=== PATIENT | male | born 1960 | race Caucasian/White ===

== ENCOUNTER 2023-03-26 06:57 | Day surgery (SDC) | payer OTHER, SELFPAY ==
[2023-03-26] VITALS (11 sets, daily range): BP systolic 131–153; BP diastolic 80–95; PULSE 80–93; RESP 16–23; TEMP 36.1–36.3; O2SAT 93–97; BMI 38.3
[2023-03-26] MEDS: scopolamine 1.5 Patch 1 PATCH TRANSDERMA (07:18)
[2023-03-26] MEDS: sodium chloride 0.9% 1,000 ML 30 ML IV ×2 (07:34→08:54)
[2023-03-26] MEDS: acetaminophen 1,000 MG/100 ML PIGGYBACK 400 MG IV (07:36)
--- NOTE | 2023-03-26 07:47 | ANES.PREANE2 ---
Pre-Anesthetic Assessment Height/Weight: Height 1.93 m Weight 142.882 kg Temp Pulse Resp BP Pulse Ox O2 Del Method 97.4 F L 85 16 145/87 96 Room Air 03/26/23 07:21 03/26/23 07:21 03/26/23 07:21 03/26/23 07:21 03/26/23 07:21 03/26/23 07:30 Operation Date: 03/26/23 08:40 Proposed Procedures p Bicep Tenotomy(Right) - Al Evans, DO s Subacromial Decompression(Right) - Al Evans, DO s AC Joint Resection Acromioclavicular Joint Resection(Right) - Al Kings, DO Familial anesthetic complications: None Was Beta Joanna taken within 24 hours: N/A Was Clonidine taken within 24 hours: N/A Last intake: Intake Last Liquid Date 03/25/23 Last Liquid Time 20:30 Last Solid Date 03/25/23 Last Solid Time 20:00 Social No alcohol and No tobacco Exam alert, oriented x 3, clear to auscultation bilaterally and regular rate & rhythm Airway Mallampati: Class III Dentition: full Pulmonary Asthma (NSAIDs evoke asthma symptoms) and Sleep Apnea Hx pneumonia at 18 months, states lower lungs ended up with a bit of damage CV/HEM Hypertension Hx chest pains 13 years ago, clear cath per patient.Prescribed HTG and hasn't required them in 2 to 3 years. Denies continued chest pains, states he's able to achieve > 4 METs w/out cardiac symptoms. Dinitrate is taken for HTN per patient GI Gastroesophageal Reflux Disease Metabolic Diabetes Mellitus and Morbid Obesity Anesthetic Plan ASA status: 3 Anesthesia: General and Regional (specify below) Risk of > 500 ml blood loss (7ml/kg in children): No Medications/Allergies Home Medications Medication Instructions Recorded Confirmed Last Taken Type amlodipine 10 mg tablet 10 mg PO DAILY 03/08/23 03/23/23 03/25/23 History buspirone 10 mg tablet 10 mg PO DAILY 03/08/23 03/23/23 03/25/23 History cyclobenzaprine 10 mg tablet 10 mg PO TID 03/08/23 03/23/23 03/25/23 History dulaglutide 0.75 mg/0.5 mL 0.75 mg SUBCUT DIRECTED 03/08/23 03/23/23 03/19/23 History subcutaneous pen injector (Trulicity) empagliflozin 25 mg tablet 25 mg PO DAILY 03/08/23 03/23/23 03/25/23 History (Jardiance) esomeprazole magnesium 40 mg 40 mg PO DAILY 03/08/23 03/23/23 03/25/23 History capsule,delayed release (Nexium) gabapentin 100 mg capsule 100 mg PO TID 03/08/23 03/23/23 03/25/23 History hydroxyzine HCl 25 mg tablet 25 mg PO DAILY 03/08/23 03/23/23 03/25/23 History isosorbide dinitrate 30 mg tablet 30 mg PO BID 03/08/23 03/23/23 03/25/23 History umeclidinium 62.5 mcg-vilanterol 1 inh inhalation DAILY 03/08/23 03/23/23 03/25/23 History 25 mcg/actuation powdr for inhalation (Anoro Ellipta) mometasone-formoterol HFA 200 2 puff inhalation DAILY 03/23/23 03/23/23 03/25/23 History mcg-5 mcg/actuation aerosol inhaler (Dulera) acetaminophen 650 mg 650 mg PO Q12H PRN Pain 03/26/23 03/26/23 03/25/23 History tablet,extended release (Tylenol Arthritis Pain) hydrocodone 5 mg-acetaminophen 325 1 tab PO Q6H PRN pain 5 days #20 03/26/23 Unknown Rx mg tablet tabs ondansetron 4 mg disintegrating 4 mg PO Q8H PRN nausea and 03/26/23 Unknown Rx tablet vomiting 3 days #9 tabs Allergies Allergy/AdvReac Type Severity Reaction Status Date / Time NSAIDS (Non-Steroidal Allergy Intermediate ADR-Cough Verified 03/23/23 10:41 Anti-Inflamma Sulfa (Sulfonamide Allergy Intermediate ALGY-Hives Verified 03/23/23 10:41 Antibiotics) Current Medications Generic Name Dose Route Start Last Admin Trade Name Freq PRN Reason Stop Dose Admin Sodium Chloride 1,000 mls @ 30 mls/hr 03/26/23 07:15 03/26/23 07:34 Sodium Chloride 0.9% IV 03/27/23 07:14 30 mls/hr .Q24H ALLA Administration Data Anesthesia 03/26/23 07:43 03/26/23 07:37 Cardiac Studies: No Data to Display
[2023-03-26 07:50] LABS: Basophils % 0.5 %; Eosinophils # 0.1 10^3/uL (0.0-0.8); Eosinophils % 2.1 %; Hematocrit 49.6 % (37-53); Lymphocytes # 1.5 10^3/uL (0.8-4.8); Lymphocytes % 23.3 %; Mean Corpuscular HGB Conc 32.7 g/dL (30-55); Mean Corpuscular Hemoglobin 28.9 pg (27-33); Mean Corpuscular Volume 88.6 fl (82-101); Mean Platelet Volume 9.5 fL (7.4-10.4); Monocytes # 0.6 10^3/uL (0.2-0.9); Monocytes % 8.7 %; Neutrophils # 4.12 10^3/uL (1.8-7.7); Neutrophils % 65.1 %; Nucleated Red Blood Cells % 0 %; Platelet Count 249 10^3/cmm (157-399); Red Cell Distribution Width 13.5 % (12.1-15.1); White Blood Count 6.32 10^3/uL (3.29-11.43)
[2023-03-26 08:06] LABS: Anion Gap 16.1 (5-19); Blood Urea Nitrogen 19 mg/dL (8-23); Calcium 9.5 mg/dL (8.5-10.5); Carbon Dioxide 26 mmol/L (22-29); Chloride 102 mmol/L (98-107); Glomerular Filtration Rate 68.3 mL/min (90-130); Glucose 145 mg/dL (65-115); Osmolality Calculated 295 mOsm/kg (285-295); Potassium 4.1 mmol/L (3.5-5.1); Sodium 140 mmol/L (136-145)
--- NOTE | 2023-03-26 08:27 | ANES.PROC ---
Anesthesia Procedures Procedure/Date: 03/26/23 Nerve Block ^: Nerve Block 1: Main Anesthesia: general anesthesia Time Out Performed: Yes Consent: requested by attending/covering physician, from patient, from other, risks and benefits reviewed and patient agrees to proceed Nerve block location: interscalene (R) Anesthesia monitors applied: pulse oximetry, EKG, BP cuff and oxygen Nerve block position: semi sitting Anesthetic Used: ropivicaine 0.5% (30 ml) and with decadron (4 mg) Ultrasound used to: recognize landmarks, visualize and ID brachial plexus and visualize and ID interscalene groove Nerve Stimulator Used?: No Interscalene/Femoral BLK: 2 stimuplex 22 g needle used for position and inplane approach, visualize local anesthetic spread and no vascular puncture identified Injection: neg aspiration of heme Patient Tolerated Procedure: well and no complications Complications: none
--- NOTE | 2023-03-26 08:51 | W.PM.OPSUD ---
Surgery/Procedure H&P Update DATE OF PROCEDURE: March 26, 2023 DATE H&P PERFORMED: 03/08/23 H&P UPDATE INFORMATION: I have reviewed H&P completed within last 30 days, I have examined patient prior to procedure and No changes to prior documentation PREOP DIAGNOSIS: Right shoulder biceps tendinitis, subacromial impingement, AC joint arthrit PRIMARY INDICATION FOR PROCEDURE: Right shoulder biceps tendinitis, subacromial impingement, AC joint arthritis PLANNED PROCEDURE: Operation Date: 03/26/23 08:40 Proposed Procedures p Bicep Tenotomy(Right) - DO sunita Hernandez Subacromial Decompression(Right) - DO sunita Hernandez AC Joint Resection Acromioclavicular Joint Resection(Right) - Al Krueger DO
[2023-03-26] MEDS: ceFAZolin 2,000 MG in sodium chloride 0.9% (plus) 50 ML 100 MG IV (09:01)
--- NOTE | 2023-03-26 11:46 | PM.OP ---
Operative Report Date of procedure: March 26, 2023 Surgeon: Al Krueger DO Recreational Vehicle Repairer: Joaquín Krueger PA-C, PA was necessary for assistance in this case with assistance on instrumentation as well as positioning and assist in wound closure to execute the procedure Procedure: Preoperative diagnosis Right shoulder biceps tendinitis, subacromial impingement, AC joint arthritis Post-op diagnosis:? Right?shoulder?labral tear Right?shoulder?biceps tendon tear Right?shoulder?rotator cuff tear partial Right?shoulder?AC joint arthritis Right?shoulder?subacromial bursitis/impingement Procedure done: Left?shoulder?diagnostic and surgical arthroscopy with Rotator cuff debridement Left?shoulder?diagnostic and surgical arthroscopy biceps tenotomy Left?shoulder?diagnostic and surgical arthroscopy labral debridement Left?shoulder?diagnostic and surgical arthroscopy acromioclavicular joint resection Left?shoulder?diagnostic and surgical arthroscopy subacromial decompression (acromioplasty and bursectomy) Surgeon: Al Krueger DO Estimated blood loss: [50 mL]mL IV fluids: See anesthesia record Implants: None Complications: None Condition: stable Disposition: same day Brief History: Patient been seen and worked up in the outpatient setting for right?shoulder?pain.? Pt had an MRI which AC joint arthritis, biceps tendon tearing partial rotator cuff tear subacromial impingement..? Patient's failed conservative treatment.? We talked about treatment options far as nonoperative and operative intervention..? We talked about risk benefits complication alternatives surgical nonsurgical treatment options.? Understanding risk of surgery pt agrees to proceed with surgical intervention.? All questions have been answered at this time.? Patient elects proceed with surgery and consent obtained in office. Procedure: Patient seen evaluated in the preoperative holding area.? Consent reviewed and signed with patient.? Once again reviewed patient's MRI results as well as? planned surgical intervention.? Correct extremity marked.? Patient seen evaluated by anesthesia department received regional anesthesia.? Once ready for surgery was taken back to the operative suite.? Patient then subsequently underwent anesthesia per the anesthesia department was transported onto the OR table.? Patient was then placed into a lateral decubitus position with a beanbag and was appropriately secured to the bed.? All bony prominences well-padded.? Patient then had the right upper extremity was then prepped and draped in standard orthopedic fashion.? Patient received appropriate preoperative antibiotics.? Final timeout performed. The right upper extremity was then held in hanging from traction utilizing sterile technique.? Next started with standard diagnostic and surgical arthroscopy with posterior portal position introduced arthroscope into the glenohumeral joint.? Visualized the glenohumeral joint I then introduced a spinal needle within the rotator cuff interval to confirm appropriate anterior portal placement.? Once this was confirmed I then made my small incision and then introduced my arthroscopic shaver into the glenohumeral joint.? After thorough debridement was clearly evident patient had a significant erythema as well as positive liftoff sign of the biceps anchor and biceps tendon tear as it was pulled within the joint.? Decision at this time was made to perform a biceps tenotomy.? Introduced a thermal wand and a biceps tenotomy was performed to completion With appropriate release.? Next I evaluated the subscapularis tendon which was intact and no evidence of tear. ?Next there was significant labral tearing at biceps anchor and circumferential.? ? I then subsequently utilized a a arthroscopic shaver and thermal wand to perform a labral debridement.? This point time I then visualized the glenohumeral joint.? The glenohumeral joint was found to have grade 2-3? chondromalacia throughout. There is a small focal full-thickness defect in the cartilage of the humeral head posteriorly. Infrapatellar pouch was free of loose bodies from viewing the posterior portal.? Next a visualized the rotator cuff superiorly and there was found to be a small undersurface tearing of the supraspinatus tendon.? I utilized a spinal needle to yuan this location.? ?This completed my work within the glenohumeral joint all fluid was suctioned free of the joint.? ?Next I reintroduced the arthroscope posteriorly.? And went to the subacromial space.? I established my lateral working portal? Thermal wand was then introduced laterally and then I subsequently performed extensive bursectomy of the subacromial space.? Patient had a large anterior bone spur.? At this point time I proceeded with my AC joint resection thermal wand was used and track to the anterior edge of the acromion and then tracked all the way to the AC joint.? Once identified the AC joint this was very arthritic in nature.? Thermal wand was placed anteriorly to establish appropriate plane for AC joint resection.? Once appropriate margins and anterior inferior and anterior capsule was released I then introduced arthroscopic shaver and a bur and performed AC joint resection of both the acromion to cope plane at the AC joint and a distal clavicle resection was then performed totaling 1 cm in size and was confirmed.? This completed my AC joint resection and I then introduced the arthroscopic shaver laterally while continuing to view posteriorly.? I then performed an acromioplasty to complete my subacromial decompression prior to fixing the rotator cuff tear.? Next the arthroscopic shaver was then used and I completed the bursectomy over top of the rotator cuff and evaluated and patient only had a partial rotator cuff tear with no evidence of full-thickness tear and no indication for repair of the rotator cuff was appropriately debrided to stable bleeding healthy tissue. ?Next I then introduced the arthroscopic shaver posteriorly to complete my subacromial decompression appropriate complaining all the way up to the lateral edge of the acromion.? This completed the surgery.? All fluid was suctioned from the?shoulder.? All instruments were removed.? The lateral incision was then closed with nylon stitches.? As well as the portal sites closed with portal nylon stitches.? Xeroform 4 x 4's ABD and tape was then applied to the ?shoulder?and was placed into a?shoulder?abduction pillow sling for rotator cuff repair.? Patient was then awakened from anesthesia and then taken back to PACU in stable condition.? Patient tolerated procedure without any issues. Disposition: Patient taken back in stable condition recovering well.? Dressings on in place clean dry and intact.? Will be nonweightbearing to the right upper extremity.? Follow rotator cuff repair protocol.? Patient to follow-up with me in the office in 2 weeks.? Patient will receive appropriate discharge instruction as well as pain medication postoperatively.? All questions answered.? We will contact the office for any questions or concerns.
--- NOTE | 2023-03-26 11:47 | W.PM.BPON ---
Date of Procedure: [March 26, 2023] Surgeon: [Dr. Evnas SOLO] Household Refrigeration Mechanic(s): [Joaquín Krueger physician associate] Procedure(s) performed: [Right shoulder diagnostic arthroscopy with AC joint resection, subacromial decompression, biceps tenotomy, rotator cuff debridement] Findings of the procedure(s): [Right shoulder biceps tendinitis, subacromial impingement, AC joint arthritis.] Estimated blood loss: [5ml] Specimen(s) removed: [N/A] Post-operative diagnosis: [Right shoulder biceps tendinitis, subacromial impingement, AC joint arthritis]
--- NOTE | 2023-03-26 11:51 | PM.PACU ---
PACU note Narrative: Patient is a 62-year-old male that underwent a right shoulder diagnostic arthroscopy. Patient transferred to PACU in stable condition. Pain is well controlled. shoulder Dressing on , dry and in place. Patient's operative arm is in a shoulder sling. Patient is awake and alert and able to respond to my questions accordingly. Patient's fingers are warm with good perfusion. Normal cap refill under 2 seconds. Unable to assess further range of motion in arm due to sling. Unable to assess sensation and motor due to block. Exam: awake Disposition: discharged
[2023-03-26 12:13] LABS: Glucose Point of Care 139 mg/dL (70-110)
[2023-03-26] MEDS: HYDROcodone-acetaminophen 5-325 mg Tablet 1 TAB PO (12:18)
--- NOTE | 2023-03-26 12:45 | ANE.PACU2 ---
Inpatient post-anesthesia follow up: Airway intact: Yes Vital signs: Temperature 97 F Pulse Rate 83 Respiratory Rate 18 Blood Pressure 131/80 Pulse Oximetry 93 Oxygen Delivery Me thod Room Air Oxygen Flow Rate Fraction of Inspir ed Oxygen Hydration adequate: Yes Nausea and vomiting: No Pain level: 1 Mental status: Baseline
== END 2023-03-26 12:49 | disposition home or self-care (01) ==
PROVIDERS: Anesthesiology; PCP Family Medicine; Visit Provider Student in an Organized Health Care Education/Training Program
PROC: (CPT 24310; principal; 2023-03-26 08:40)
PROC: (CPT 29826; 2023-03-26 08:40)
PROC: 0RSG0ZZ Reposition Right Acromioclavicular Joint, Open Approach (ICD-10-PCS; CPT 29824; 2023-03-26 08:40)
DX: M75.111 Incomplete rotator cuff tear or rupture of right shoulder, not specified as traumatic (principal); M19.011 Primary osteoarthritis, right shoulder; M25.811 Other specified joint disorders, right shoulder; G47.30 Sleep apnea, unspecified; I10 Essential (primary) hypertension; K21.9 Gastro-esophageal reflux disease without esophagitis; E11.9 Type 2 diabetes mellitus without complications; E66.01 Morbid (severe) obesity due to excess calories; Z68.38 Body mass index [BMI] 38.0-38.9, adult
CPT/HCPCS: 29824; 29826; 29828; 36416; 80048; 82962; 85025; J0131; J0330; J0690; J1100; J2001; J2250; J2405; J2704; J2710; J2795; J3010; J3490; J7030